=== PATIENT | female | born 1960 | race Caucasian/White ===

== ENCOUNTER 2021-06-07 02:43 | Emergency (ER) | payer BC, OTHER ==
[~2021-06-07] VITALS: Ht 172.7 cm; Wt 77.1 kg
[~2021-06-07 02:43] MED LIST: LEVOXYL25 MCG PO
[2021-06-07] MEDS ORDERED: ACETAMINOPHEN PO (02:53)
[2021-06-07] MEDS ORDERED: FLEXERIL PO (02:53)
[2021-06-07] MEDS ORDERED: ALBUTEROL (03:04)
[2021-06-07] MEDS ORDERED: CYCLOBENZAPRINE5 MG PO ×2 (03:05→04:17)
[2021-06-07] MEDS ORDERED: PROBIOTIC1 EAC7 PO (03:06)
[2021-06-07] MEDS ORDERED: VITAMIN D31 ML (03:06)
[2021-06-07] MEDS ORDERED: MELOXICAM7.5 MG PO (04:17)
[2021-06-07 04:21] VITALS: BP 104/70
== END 2021-06-07 06:38 | disposition home or self-care (01) ==
LOC: ER 02:43
DX: S46.012A Strain of muscle(s) and tendon(s) of the rotator cuff of left shoulder, initial encounter (principal); J45.909 Unspecified asthma, uncomplicated; Z90.710 Acquired absence of both cervix and uterus; Z79.891 Long term (current) use of opiate analgesic; Z79.1 Long term (current) use of non-steroidal anti-inflammatories (NSAID); Z79.899 Other long term (current) drug therapy; Z88.6 Allergy status to analgesic agent; Z88.1 Allergy status to other antibiotic agents; Z88.3 Allergy status to other anti-infective agents; Z88.5 Allergy status to narcotic agent; Z88.0 Allergy status to penicillin; Z88.8 Allergy status to other drugs, medicaments and biological substances; W18.39XA Other fall on same level, initial encounter; Y93.89 Activity, other specified; Y92.89 Other specified places as the place of occurrence of the external cause; Y99.8 Other external cause status